=== PATIENT | male | born 1995 | race Caucasian/White ===

== ENCOUNTER 2022-05-25 21:57 | Emergency (ER) | payer BC, OTHER ==
[2022-05-25 22:08] VITALS: BP 122/69; PULSE 73; TEMP 97; BMI 29.8
[2022-05-25] MEDS ORDERED: IBUPROFEN 600 MG TABLET (FP) PO ONE ×2 (22:41)
== END 2022-05-25 22:47 | disposition home or self-care (01) ==
LOC: JERFT 21:57 → JER 21:57 → JERFT 22:47
DX: K08.89 Other specified disorders of teeth and supporting structures (principal)
CPT/HCPCS: 99283-25